=== PATIENT | male | born 1990 | race Caucasian/White ===

== ENCOUNTER 2022-06-09 20:25 | Emergency (ER) | payer BC ==
[2022-06-09] MEDS ORDERED: BABY ASPIRIN 81 MG CHEW PO ONE (20:50)
[2022-06-09] MEDS ORDERED: BABY ASPIRIN 81 MG CHEW ONE (20:55)
--- NOTE | 2022-06-09 21:23 | ERPHSYRPT ---
- History of Present Illness Time Seen by Provider: 06/09/22 20:29 Historian: patient Exam Limitations: no limitations Patient Subjective Stated Complaint: chest discomfort x2 days, dull Triage Nursing Assessment: pt ambulated into ER without diff. Pt alert and oriented x4, pleasant and cooperative. Pt c/o chest discomfort midsternal x2 days off and on. The discomfort started yesterday before he went to work out but pt had drank 2 energy drinks that day and does drink alot of caffeine. Lungs clear, heart tones reg, abd soft with active bs x4 quad, nontender. Pt denies any sob or radiation of the chest pain, just describes it as a dull ache. Physician History: 31 years old male presented in the ER with chief complaint of substernal chest discomfort/pressure/fullness off and on for the last couple of days without any significant aggravating or relieving factors. Denies associated palpitations or shortness of breath. No previous history of chest pain or discomfort. No history of GERD symptoms. Does report going through a lot of stress lately. No definite or known family history of CAD. Currently patient is symptom-free. Timing/Duration: day(s) (2), intermittent, gradual onset, improved Activities at Onset: rest Quality: aching, fullness, pressure Location: central Chest Pain Radiation: no radiation Severity of Pain-Max: mild Severity of Pain-Current: none Modifying Factors: Improves With: nothing Associated Symptoms: denies symptoms Prior Chest Pain/Cardiac Workup: no prior chest pain, no prior cardiac workup Nitro Today/Relief: no nitro taken today Aspirin Treatment Today: no aspirin today Allergies/Adverse Reactions: No Known Drug Allergies Allergy (Verified 06/09/22 20:53) Hx Tetanus, Diphtheria Vaccination/Date Given: Yes Hx Influenza Vaccination/Date Given: No Hx Pneumococcal Vaccination/Date Given: No Travel Risk - International Travel Have you traveled outside of the country in past 3 weeks: No - Coronavirus Screening Are you exhibiting any of the following symptoms?: No Close contact with a COVID-19 positive Pt in past 14-21 Days: No - Vaccine Status Have you recieved a Covid-19 vaccination: Yes Vice President Of Manufacturing: Unknown - Vaccination Dates Dates if Unknown: . - Review of Systems Constitutional: No Symptoms Eyes: No Symptoms Ears, Nose, & Throat: No Symptoms Respiratory: No Symptoms Cardiac: Chest Pain Abdominal/Gastrointestinal: No Symptoms Genitourinary Symptoms: No Symptoms Musculoskeletal: No Symptoms Skin: No Symptoms Neurological: No Symptoms Endocrine: No Symptoms Hematologic/Lymphatic: No Symptoms Immunological/Allergic: No Symptoms - Past Medical History Pertinent Past Medical History: Yes Neurological History: No Pertinent History ENT History: No Pertinent History Cardiac History: Hypertension Respiratory History: Bronchitis Endocrine Medical History: No Pertinent History Musculoskeletal History: No Pertinent History Psycho-Social History: No Pertinent History Other Medical History: cellulitis left leg. Covid - Past Surgical History Past Surgical History: Yes Other Surgical History: rhinoplasty - GI scope - Social History Smoking Status: Never smoker Exposure to second hand smoke: No Drug Use: none Patient Lives Alone: Yes - Nursing Vital Signs Nursing Vital Signs: Initial Vital Signs Temperature 97.8 F 06/09/22 20:32 Pulse Rate 100 H 06/09/22 20:32 Respiratory Rate 18 06/09/22 20:32 Blood Pressure 179/102 06/09/22 20:32 O2 Sat by Pulse Oximetry 100 06/09/22 20:32 Pain Scale Pain Intensity 1 - Physical Exam General Appearance: no apparent distress, alert Eye Exam: PERRL/EOMI, eyes nml inspection Ears, Nose, Throat Exam: normal ENT inspection, TMs normal, pharynx normal, moist mucous membranes Neck Exam: normal inspection, supple, full range of motion Respiratory Exam: normal breath sounds, lungs clear, No chest tenderness Cardiovascular Exam: regular rate/rhythm, normal heart sounds Gastrointestinal/Abdomen Exam: soft, normal bowel sounds, No tenderness Back Exam: normal inspection Extremity Exam: normal inspection, normal range of motion Neurologic Exam: alert, oriented x 3, cooperative Skin Exam: normal color SpO2 Interpretation: normal SpO2: 96 O2 Delivery: Room Air - Course EKG Interpreted by Me: RATE (90), Sinus Rhythm, NORMAL AXIS, NORMAL INTERVALS, NORMAL QRS Ordered Tests: Active Orders 24 hr Category Date Time Status Sonogram Technician STAT Care 06/09/22 20:51 Active EKG-ER Only STAT Care 06/09/22 20:50 Active IV Insertion STAT Care 06/09/22 20:50 Active Pulse Oximetry (ED) STAT Care 06/09/22 20:50 Active CHEST 1 VIEW (PORTABLE) Stat Exams 06/09/22 20:50 Taken CBC W DIFF Stat Lab 06/09/22 21:26 Completed CK-Creatinine Phosphokinase Stat Lab 06/09/22 21:26 Completed CMP Stat Lab 06/09/22 21:26 Completed D-DIMER QUANTITATIVE Stat Lab 06/09/22 21:26 Completed NT PRO BNPII Stat Lab 06/09/22 21:26 Completed TROPONIN Q4H Lab 06/09/22 21:26 Completed TROPONIN Q4H Lab 06/10/22 01:00 Ordered TROPONIN Q4H Lab 06/10/22 05:00 Ordered Medication Summary Discontinued Medications Generic Name Dose Route Start Last Admin Trade Name Cipriano PRN Reason Stop Dose Admin Al Hydrox/Mg Hydrox/Simethicone Confirm 06/09/22 22:24 Mag Hydrox/Al Hydrox/Simeth 30 Ml Udcup Administered 06/09/22 22:25 Dose 30 ml .ROUTE .STK-MED ONE Aspirin 324 mg 06/09/22 20:50 06/09/22 20:56 Aspirin 81 Mg Tab.Chew PO 06/09/22 20:51 324 mg STAT ONE Administration Aspirin Confirm 06/09/22 20:55 Aspirin 81 Mg Tab.Chew Administered 06/09/22 20:56 Dose 324 mg .ROUTE .STK-MED ONE Lidocaine HCl Confirm 06/09/22 22:24 Lidocaine Hcl 2% Viscous 15 Ml Udcup Administered 06/09/22 22:25 Dose 15 ml .ROUTE .STK-MED ONE Magnesium Hydroxide 45 ml 06/09/22 22:12 06/09/22 22:28 Mag Hydrx/Alum Hyd/Simeth/Lido 45 Ml Bottle PO 06/09/22 22:13 45 ml STAT ONE Administration Lab/Rad Data: Laboratory Result Diagrams 06/09/22 21:26 06/09/22 21:26 Laboratory Results 06/09/22 06/09/22 06/09/22 Range/Units 21:26 21:26 21:26 WBC (4.0-10.5) x10^3/uL RBC (4.1-5.6) x10^6/uL Hgb (12.5-18.0) g/dL Hct (42-50) % MCV (78-100) fL MCH (26-32) pg MCHC (32-36) g/dL RDW (11.5-14.0) % Plt Count (150-450) x10^3/uL MPV (7.5-11.0) fL Gran % (36.0-66.0) % Immature Gran % (Auto) (0.00-0.4) % Nucleat RBC Rel Count (0.00-0.1) % Eos # (Auto) (0-0.5) x10^3/uL Immature Gran # (Auto) (0.00-0.03) x10^3u/L Absolute Lymphs (auto) (1.0-4.6) x10^3/uL Absolute Monos (auto) (0.0-1.3) x10^3/uL Absolute Nucleated RBC (0.00-0.01) x10^3u/L Lymphocytes % (24.0-44.0) % Monocytes % (0.0-12.0) % Eosinophils % (0.00-5.0) % Basophils % (0.0-0.4) % Absolute Granulocytes (1.4-6.9) x10^3/uL Basophils # (0-0.4) x10^3/uL D-Dimer 0.30 (0.0-0.50) mg/L Sodium (137-145) mmol/L Potassium (3.5-5.1) mmol/L Chloride (98-107) mmol/L Carbon Dioxide (22-30) mmol/L Anion Gap (5-15) MEQ/L BUN (9-20) mg/dL Creatinine (0.66-1.25) mg/dL Estimated GFR ML/MIN Glucose (74-106) mg/dL Calcium (8.4-10.2) mg/dL Total Bilirubin (0.2-1.3) mg/dL AST (17-59) U/L ALT (0-50) U/L Alkaline Phosphatase (38-126) U/L Creatine Kinase (55-170) U/L Troponin I < 0.012 (0.000-0.034) ng/mL NT-Pro-B Natriuret Pep < 20.0 (<300) pg/mL Serum Total Protein (6.3-8.2) g/dL Albumin (3.5-5.0) g/dL 06/09/22 06/09/22 Range/Units 21:26 21:26 WBC 8.1 (4.0-10.5) x10^3/uL RBC 4.81 (4.1-5.6) x10^6/uL Hgb 14.3 (12.5-18.0) g/dL Hct 43.0 (42-50) % MCV 89.4 (78-100) fL MCH 29.7 (26-32) pg MCHC 33.3 (32-36) g/dL RDW 13.2 (11.5-14.0) % Plt Count 254 (150-450) x10^3/uL MPV 10.3 (7.5-11.0) fL Gran % 69.1 H (36.0-66.0) % Immature Gran % (Auto) 0.1 (0.00-0.4) % Nucleat RBC Rel Count 0.0 (0.00-0.1) % Eos # (Auto) 0.05 (0-0.5) x10^3/uL Immature Gran # (Auto) 0.01 (0.00-0.03) x10^3u/L Absolute Lymphs (auto) 1.82 (1.0-4.6) x10^3/uL Absolute Monos (auto) 0.59 (0.0-1.3) x10^3/uL Absolute Nucleated RBC 0.00 (0.00-0.01) x10^3u/L Lymphocytes % 22.5 L (24.0-44.0) % Monocytes % 7.3 (0.0-12.0) % Eosinophils % 0.6 (0.00-5.0) % Basophils % 0.4 (0.0-0.4) % Absolute Granulocytes 5.59 (1.4-6.9) x10^3/uL Basophils # 0.03 (0-0.4) x10^3/uL D-Dimer (0.0-0.50) mg/L Sodium 139 (137-145) mmol/L Potassium 4.3 (3.5-5.1) mmol/L Chloride 107 (98-107) mmol/L Carbon Dioxide 24 (22-30) mmol/L Anion Gap 12.1 (5-15) MEQ/L BUN 11 (9-20) mg/dL Creatinine 0.88 (0.66-1.25) mg/dL Estimated GFR > 60.0 ML/MIN Glucose 99 (74-106) mg/dL Calcium 8.9 (8.4-10.2) mg/dL Total Bilirubin 0.40 (0.2-1.3) mg/dL AST 27 (17-59) U/L ALT 29 (0-50) U/L Alkaline Phosphatase 100 (38-126) U/L Creatine Kinase 82 (55-170) U/L Troponin I (0.000-0.034) ng/mL NT-Pro-B Natriuret Pep (<300) pg/mL Serum Total Protein 7.3 (6.3-8.2) g/dL Albumin 4.1 (3.5-5.0) g/dL - Progress Progress: improved Air Movement: good Progress Note: 06/09/22 23:01 31 years old is evaluated for central chest tightness/pressure off and on for couple of days which is resolved on presentation in the ER. EKG showed normal sinus rhythm with no acute ischemic changes. He is given aspirin and GI cocktail and has no symptoms while in here. Has normal white count, unremarkable chemistries and negative troponin and D-dimers. Chest x-ray reviewed by me, negative for any acute cardiopulmonary findings, official report is pending. Patient symptoms been going on for the last couple of days and 1 negative troponin rules it out. Do not think needs second troponin and patient is also low risk. Do not think needs admission or any other work-up but I would refer him outpatient to follow-up with his primary care and cardiology for further evaluation. I would also give him Pepcid to see if his symptoms are secondary to GERD. Discussed signs symptoms of worsening needing return to ER which he seems understanding. Stable for discharge. Blood Culture(s) Obtained: No Antibiotics given: No Counseled pt/family regarding: lab results, diagnosis, need for follow-up, rad results Medical Desision Making - Discussion of managment Reviewed:: Test results, Need for additional workup Agreed on:: Treatment plan, need for follow-up - Diagnostic Testing Radiological Interpretation: Interpreted by me, Reviewed by me - Risk of complications Low Risk: Low risk of morbidity from additional dx testing or treatment - Departure Departure Disposition: Home Clinical Impression: Atypical chest pain Condition: Stable Critical Care Time: No Referrals: JOHNATHAN MICHAEL NP [Primary Care Provider] - Follow up with PCP 1 day MATHIEU GUO [CONSULTING PHYSICIAN] - Follow up other (Call tomorrow for appointment) Instructions: Angina (DC), Chest Pain (DC) Additional Instructions: Follow-up with primary care and cardiology for reevaluation. Return to ER if having persistent pressure, difficulty breathing, racing of the heart etc. Prescriptions: Famotidine 20 mg [Pepcid 20 MG] 20 mg PO BID #60 tablet
[2022-06-09 21:29] LABS: Absolute Neutrophil Ct (ANC) 5.59 x10^3/uL (1.4-6.9); BASOPHIL % 0.4 % (0.0-0.4); Basophil (Absolute #) 0.03 x10^3/uL (0-0.4); Eosinophil % 0.6 % (0.00-5.0); Eosinophil (Absolute #) 0.05 x10^3/uL (0-0.5); Hemoglobin 14.3 g/dL (12.5-18.0); IMMATURE GRAN # 0.01 x10^3u/L (0.00-0.03); IMMATURE GRAN % 0.1 % (0.00-0.4); Lymphocyte (Absolute #) 1.82 x10^3/uL (1.0-4.6); Lymphocytes % 22.5 % (24.0-44.0); Mean Cell Volume 89.4 fL (78-100); Mean Corpuscular Hemoglobin 29.7 pg (26-32); Mean Corpuscular Hgb Concent. 33.3 g/dL (32-36); Mean Platelet Volume 10.3 fL (7.5-11.0); Monocyte (Absolute #) 0.59 x10^3/uL (0.0-1.3); Monocytes % 7.3 % (0.0-12.0); Neutrophil % 69.1 % (36.0-66.0); Platelet Count 254 x10^3/uL (150-450); Red Blood Count 4.81 x10^6/uL (4.1-5.6); Red Cell Distribution Width 13.2 % (11.5-14.0); White Blood Count 8.1 x10^3/uL (4.0-10.5)
[2022-06-09 21:41] LABS: ALBUMIN 4.1 g/dL (3.5-5.0); ALKALINE PHOSPHATASE 100 U/L (38-126); ANION GAP 12.1 MEQ/L (5-15); BLOOD UREA NITROGEN 11 mg/dL (9-20); CHLORIDE 107 mmol/L (98-107); CK-Creatinine Phosphokinase 82 U/L (55-170); Calcium 8.9 mg/dL (8.4-10.2); Carbon Dioxide 24 mmol/L (22-30); Creatinine 1 0.88 mg/dL (0.66-1.25); EST GLOMERULAR FILTRATION RATE > 60.0 ML/MIN; Glucose 99 mg/dL (74-106); Potassium 4.3 mmol/L (3.5-5.1); SGOT/AST 27 U/L (17-59); SGPT/ALT 29 U/L (0-50); SODIUM 139 mmol/L (137-145); Total Protein 7.3 g/dL (6.3-8.2)
[2022-06-09] MEDS ORDERED: GI COCKTAIL 45 ML (Maalox/Lidocaine) PO ONE (22:12)
[2022-06-09] MEDS ORDERED: XYLOCAINE VISCOUS 2% 15 ML CUP ONE (22:24)
[2022-06-09] MEDS ORDERED: MAALOX ES 30 ML UNIT DOSE ONE (22:24)
[2022-06-09 23:06] VITALS: O2SAT 96
[2022-06-09 23:11] VITALS: BP 118/71; PULSE 75
--- NOTE | 2022-06-10 08:37 | XRAY ---
Indication: Chest pain. Comparison: November 27, 2008 Portable apical lordotic chest demonstrates normal heart, lungs, and bony thorax with a few incidental tiny calcified granulomas.
== END 2022-06-09 23:28 | disposition home or self-care (01) ==
LOC: ED 20:25
DX: R07.89 Other chest pain (principal); I10 Essential (primary) hypertension
CPT/HCPCS: 36415; 71045; 80053; 82550; 83880; 84484; 85025; 85379; 93005; 93041; 94760; 99284; A9270-GY

== ENCOUNTER 2022-09-14 06:50 | Emergency (ER) | payer BC ==
--- NOTE | 2022-09-14 07:02 | ERPHSYRPT ---
- History of Present Illness Time Seen by Provider: 09/14/22 07:02 Historian: patient Exam Limitations: no limitations Physician History: This is a 31-year-old overweight white male patient of nurse practitioner Sharmila who presents with "heartburn" symptoms and associated twinges of left anterior chest aching and pressure that is nonradiating. Patient has these types of symptoms occasionally. He was seen on 06/09/2022 and there was a twelve-lead EKG performed which was normal sinus rhythm with a heart rate of 90 and no acute ischemic changes noted. Patient has a history of hypertension and bronchitis. Patient denies shortness of breath. Patient denies cough. Patient denies fever. Patient has no smoking history. Patient's uncle was diagnosed with severe heart attack recently and patient is also concerned about his heart. Patient states that he has not been taking his famotidine as he is prescribed to do. Timing/Duration: today Quality: aching, burning, pressure Abdominal Pain Onset Location: epigastric, other (Left of substernal region on this chest) Pain Radiation: no radiation Severity of Pain-Max: mild Severity of Pain-Current: mild Modifying Factors: Improves With: nothing Associated Symptoms: denies symptoms Previous symptoms: same symptoms as today, no recent treatment Allergies/Adverse Reactions: No Known Drug Allergies Allergy (Verified 09/14/22 06:58) Hx Tetanus, Diphtheria Vaccination/Date Given: Yes Hx Influenza Vaccination/Date Given: No Hx Pneumococcal Vaccination/Date Given: No Travel Risk - International Travel Have you traveled outside of the country in past 3 weeks: No - Coronavirus Screening Are you exhibiting any of the following symptoms?: No Close contact with a COVID-19 positive Pt in past 14-21 Days: No - Vaccine Status Have you recieved a Covid-19 vaccination: Yes Port Patrol Officer: Unknown - Vaccination Dates Dates if Unknown: . - Review of Systems Constitutional: No Symptoms Eyes: No Symptoms Ears, Nose, & Throat: No Symptoms Respiratory: No Symptoms Cardiac: Chest Pain (Described as an ache, pressure and burning) Abdominal/Gastrointestinal: Abdominal Pain (Heartburn symptoms) Genitourinary Symptoms: No Symptoms Musculoskeletal: No Symptoms Skin: No Symptoms Neurological: No Symptoms Psychological: No Symptoms Endocrine: No Symptoms Hematologic/Lymphatic: No Symptoms Immunological/Allergic: No Symptoms All Other Systems: Reviewed and Negative - Past Medical History Pertinent Past Medical History: Yes Neurological History: No Pertinent History ENT History: No Pertinent History Cardiac History: Hypertension Respiratory History: Bronchitis Endocrine Medical History: No Pertinent History Musculoskeletal History: No Pertinent History Psycho-Social History: No Pertinent History Other Medical History: cellulitis left leg. Covid - Past Surgical History Past Surgical History: Yes Other Surgical History: rhinoplasty - GI scope - Social History Smoking Status: Never smoker Exposure to second hand smoke: No Drug Use: none Patient Lives Alone: Yes - Nursing Vital Signs Nursing Vital Signs: Initial Vital Signs Temperature 97.3 F 09/14/22 06:59 Pulse Rate 80 09/14/22 06:59 Respiratory Rate 14 09/14/22 06:59 Blood Pressure 115/71 09/14/22 06:59 O2 Sat by Pulse Oximetry 98 09/14/22 06:59 Pain Scale Pain Intensity 2 - Physical Exam General Appearance: no apparent distress, alert, anxiety, obese Eye Exam: PERRL/EOMI, eyes nml inspection Ears, Nose, Throat Exam: normal ENT inspection, moist mucous membranes Neck Exam: normal inspection, non-tender, supple, full range of motion Respiratory Exam: normal breath sounds, chest tenderness, lungs clear, airway intact, No respiratory distress Cardiovascular Exam: regular rate/rhythm, normal heart sounds, normal peripheral pulses Gastrointestinal/Abdomen Exam: soft, normal bowel sounds, No tenderness Rectal Exam: not done Back Exam: normal inspection, normal range of motion, No CVA tenderness, No vertebral tenderness Extremity Exam: normal inspection, normal range of motion, pelvis stable Neurologic Exam: alert, oriented x 3, cooperative, finance consultant II-XII nml as tested, normal mood/affect, nml cerebellar function, nml station & gait, sensation nml Skin Exam: normal color, warm, dry Lymphatic Exam: No adenopathy SpO2 Interpretation: normal O2 Delivery: Room Air - Course Nursing assessment & vital signs reviewed: Yes Ordered Tests: Active Orders 24 hr Category Date Time Status Title I Instructional Assistant STAT Care 09/14/22 07:16 Active EKG-ER Only STAT Care 09/14/22 07:15 Active Pulse Oximetry (ED) STAT Care 09/14/22 07:15 Active CHEST 1 VIEW (PORTABLE) Stat Exams 09/14/22 07:16 Completed AMYLASE Stat Lab 09/14/22 07:15 Completed CBC W DIFF Stat Lab 09/14/22 07:15 Completed CMP Stat Lab 09/14/22 07:15 Completed D-DIMER QUANTITATIVE Stat Lab 09/14/22 07:15 Completed LIPASE Stat Lab 09/14/22 07:15 Completed TROPONIN Q4H Lab 09/14/22 07:22 Completed TROPONIN Q4H Lab 09/14/22 11:30 Ordered TROPONIN Q4H Lab 09/14/22 15:30 Ordered Medication Summary Discontinued Medications Generic Name Dose Route Start Last Admin Trade Name Cipriano PRN Reason Stop Dose Admin Al Hydrox/Mg Hydrox/Simethicone Confirm 09/14/22 07:32 Mag Hydrox/Al Hydrox/Simeth 30 Ml Udcup Administered 09/14/22 07:33 Dose 30 ml .ROUTE .STK-MED ONE Lidocaine HCl Confirm 09/14/22 07:32 Lidocaine Hcl 2% Viscous 15 Ml Udcup Administered 09/14/22 07:33 Dose 15 ml .ROUTE .STK-MED ONE Magnesium Hydroxide 45 ml 09/14/22 07:17 09/14/22 07:33 Mag Hydrx/Alum Hyd/Simeth/Lido 45 Ml Bottle PO 09/14/22 07:18 45 ml STAT ONE Administration Lab/Rad Data: Laboratory Result Diagrams 09/14/22 07:15 09/14/22 07:15 Laboratory Results 09/14/22 09/14/22 09/14/22 Range/Units 07:22 07:15 07:15 WBC (4.0-10.5) x10^3/uL RBC (4.1-5.6) x10^6/uL Hgb (12.5-18.0) g/dL Hct (42-50) % MCV (78-100) fL MCH (26-32) pg MCHC (32-36) g/dL RDW (11.5-14.0) % Plt Count (150-450) x10^3/uL MPV (7.5-11.0) fL Gran % (36.0-66.0) % Immature Gran % (Auto) (0.00-0.4) % Nucleat RBC Rel Count (0.00-0.1) % Eos # (Auto) (0-0.5) x10^3/uL Immature Gran # (Auto) (0.00-0.03) x10^3u/L Absolute Lymphs (auto) (1.0-4.6) x10^3/uL Absolute Monos (auto) (0.0-1.3) x10^3/uL Absolute Nucleated RBC (0.00-0.01) x10^3u/L Lymphocytes % (24.0-44.0) % Monocytes % (0.0-12.0) % Eosinophils % (0.00-5.0) % Basophils % (0.0-0.4) % Absolute Granulocytes (1.4-6.9) x10^3/uL Basophils # (0-0.4) x10^3/uL D-Dimer 0.33 (0.0-0.50) mg/L Sodium 138 (137-145) mmol/L Potassium 4.1 (3.5-5.1) mmol/L Chloride 102 (98-107) mmol/L Carbon Dioxide 26 (22-30) mmol/L Anion Gap 14.2 (5-15) MEQ/L BUN 12 (9-20) mg/dL Creatinine 0.79 (0.66-1.25) mg/dL Estimated GFR > 60.0 ML/MIN Glucose 100 (74-106) mg/dL Calcium 9.1 (8.4-10.2) mg/dL Total Bilirubin 0.50 (0.2-1.3) mg/dL AST 27 (17-59) U/L ALT 31 (0-50) U/L Alkaline Phosphatase 106 (38-126) U/L Troponin I < 0.012 (0.000-0.034) ng/mL Serum Total Protein 7.7 (6.3-8.2) g/dL Albumin 4.2 (3.5-5.0) g/dL Amylase 75 (30-110) U/L Lipase 70 (23-300) U/L // Range/Units 07:15 WBC 6.9 (4.0-10.5) x10^3/uL RBC 4.64 (4.1-5.6) x10^6/uL Hgb 13.6 (12.5-18.0) g/dL Hct 41.8 L (42-50) % MCV 90.1 (78-100) fL MCH 29.3 (26-32) pg MCHC 32.5 (32-36) g/dL RDW 13.0 (11.5-14.0) % Plt Count 224 (150-450) x10^3/uL MPV 10.2 (7.5-11.0) fL Gran % 53.9 (36.0-66.0) % Immature Gran % (Auto) 0.3 (0.00-0.4) % Nucleat RBC Rel Count 0.0 (0.00-0.1) % Eos # (Auto) 0.10 (0-0.5) x10^3/uL Immature Gran # (Auto) 0.02 (0.00-0.03) x10^3u/L Absolute Lymphs (auto) 2.53 (1.0-4.6) x10^3/uL Absolute Monos (auto) 0.49 (0.0-1.3) x10^3/uL Absolute Nucleated RBC 0.00 (0.00-0.01) x10^3u/L Lymphocytes % 36.7 (24.0-44.0) % Monocytes % 7.1 (0.0-12.0) % Eosinophils % 1.4 (0.00-5.0) % Basophils % 0.6 (0.0-0.4) % Absolute Granulocytes 3.72 (1.4-6.9) x10^3/uL Basophils # 0.04 (0-0.4) x10^3/uL D-Dimer (0.0-0.50) mg/L Sodium (137-145) mmol/L Potassium (3.5-5.1) mmol/L Chloride (98-107) mmol/L Carbon Dioxide (22-30) mmol/L Anion Gap (5-15) MEQ/L BUN (9-20) mg/dL Creatinine (0.66-1.25) mg/dL Estimated GFR ML/MIN Glucose (74-106) mg/dL Calcium (8.4-10.2) mg/dL Total Bilirubin (0.2-1.3) mg/dL AST (17-59) U/L ALT (0-50) U/L Alkaline Phosphatase (38-126) U/L Troponin I (0.000-0.034) ng/mL Serum Total Protein (6.3-8.2) g/dL Albumin (3.5-5.0) g/dL Amylase (30-110) U/L Lipase (23-300) U/L - Progress Progress: improved, re-examined Progress Note: 09/14/22 08:15 Chest x-ray was interpreted by me. The chest x-ray shows no acute cardiopulmonary process. This patient's medical history is 1 of moderate complexity. Level complexity in the work-up performed is based on review of the patient's past medical history, review of the patient's medication list, review the patient's drug allergy list, history of present illness, physical findings on examination. The work-up includes chest x-ray, twelve-lead EKG, D-dimer level, troponin level, amylase level, lipase level, CBC and CMP. I reviewed the results of the above work-up. There is no acute, emergent medical issue. Patient will be referred back to his primary care provider. He is to follow-up on 09/16/2022 for further evaluation management. Patient is to avoid fatty greasy spicy foods and to not eat late at night. Counseled pt/family regarding: lab results, diagnosis, need for follow-up, rad results Medical Desision Making - Diagnostic Testing Diagnostic test were ordered, analyzed, and reviewed by me: Yes Radiological Interpretation: Interpreted by me - Risk of complications Low Risk: Low risk of morbidity from additional dx testing or treatment - Departure Departure Disposition: Home Clinical Impression: Chest pain, Gastroesophageal reflux disease Condition: Stable Critical Care Time: No Referrals: JOHNATHAN MICHAEL, SMOKING PIPE REPAIRER [Primary Care Provider] - Follow up/PCP as directed Additional Instructions: Avoid fatty greasy spicy foods. Take your famotidine as prescribed. Try not to eat late at night. Call your primary care provider on 09/16/2022 to make arranges for follow-up appointment and further evaluation in the next 3 to 5 days.
[2022-09-14 07:07] VITALS: TEMP 97.3
[2022-09-14] MEDS ORDERED: GI COCKTAIL 45 ML (Maalox/Lidocaine) PO ONE (07:17)
[2022-09-14 07:31] LABS: Absolute Neutrophil Ct (ANC) 3.72 x10^3/uL (1.4-6.9); BASOPHIL % 0.6 % (0.0-0.4); Basophil (Absolute #) 0.04 x10^3/uL (0-0.4); Eosinophil % 1.4 % (0.00-5.0); Hematocrit 41.8 % (42-50); Hemoglobin 13.6 g/dL (12.5-18.0); IMMATURE GRAN # 0.02 x10^3u/L (0.00-0.03); IMMATURE GRAN % 0.3 % (0.00-0.4); Lymphocyte (Absolute #) 2.53 x10^3/uL (1.0-4.6); Lymphocytes % 36.7 % (24.0-44.0); Mean Cell Volume 90.1 fL (78-100); Mean Corpuscular Hemoglobin 29.3 pg (26-32); Mean Corpuscular Hgb Concent. 32.5 g/dL (32-36); Mean Platelet Volume 10.2 fL (7.5-11.0); Monocyte (Absolute #) 0.49 x10^3/uL (0.0-1.3); Monocytes % 7.1 % (0.0-12.0); Neutrophil % 53.9 % (36.0-66.0); Platelet Count 224 x10^3/uL (150-450); Red Blood Count 4.64 x10^6/uL (4.1-5.6); White Blood Count 6.9 x10^3/uL (4.0-10.5)
[2022-09-14] MEDS ORDERED: XYLOCAINE VISCOUS 2% 15 ML CUP ONE (07:32)
[2022-09-14] MEDS ORDERED: MAALOX ES 30 ML UNIT DOSE ONE (07:32)
[2022-09-14 07:49] LABS: ALBUMIN 4.2 g/dL (3.5-5.0); ALKALINE PHOSPHATASE 106 U/L (38-126); AMYLASE 75 U/L (30-110); ANION GAP 14.2 MEQ/L (5-15); BLOOD UREA NITROGEN 12 mg/dL (9-20); CHLORIDE 102 mmol/L (98-107); Calcium 9.1 mg/dL (8.4-10.2); Carbon Dioxide 26 mmol/L (22-30); Creatinine 1 0.79 mg/dL (0.66-1.25); EST GLOMERULAR FILTRATION RATE > 60.0 ML/MIN; Glucose 100 mg/dL (74-106); LIPASE 70 U/L (23-300); Potassium 4.1 mmol/L (3.5-5.1); SGOT/AST 27 U/L (17-59); SGPT/ALT 31 U/L (0-50); SODIUM 138 mmol/L (137-145); Total Protein 7.7 g/dL (6.3-8.2)
--- NOTE | 2022-09-14 08:07 | XRAY ---
Indication: Chest pain. Comparison: June 09, 2022 Portable chest again demonstrates normal heart, lungs, and bony thorax.
[2022-09-14 08:25] VITALS: BP 128/89; PULSE 77; RESP 18; O2SAT 99
== END 2022-09-14 08:24 | disposition home or self-care (01) ==
LOC: ED 06:50
DX: R07.9 Chest pain, unspecified (principal); K21.9 Gastro-esophageal reflux disease without esophagitis; I10 Essential (primary) hypertension; Z86.16 Personal history of COVID-19
CPT/HCPCS: 36415; 71045; 80053; 82150; 83690; 84484; 85025; 85379; 93005; 93041; 94760; 99284; A9270-GY